=== PATIENT | female | born 1990 | race Caucasian/White ===

== ENCOUNTER 2024-07-05 10:43 | Emergency (ER) | payer SELFPAY ==
[~2024-07-05] VITALS: Ht 167.6 cm; Wt 73.0 kg
[2024-07-05 10:46] VITALS: O2SAT 98
[2024-07-05] MEDS: METHOCARBAMOL 500MG TABLET PO ONE (13:31)
[2024-07-05] MEDS: IBUPROFEN 600MG TABLET PO ONE (13:31)
[2024-07-05] MEDS ORDERED: IBUP-2029 MT (14:18)
[2024-07-05] MEDS ORDERED: METH-653 MT (14:18)
[2024-07-05 14:48] VITALS: BP 136/80; PULSE 76; RESP 20; TEMP 36.8; O2SAT 99
== END 2024-07-05 14:50 | disposition home or self-care (01) ==
LOC: ER 11:00
DX: S43.402A Unspecified sprain of left shoulder joint, initial encounter (principal); S83.92XA Sprain of unspecified site of left knee, initial encounter; M19.90 Unspecified osteoarthritis, unspecified site; Z88.0 Allergy status to penicillin; V89.2XXA Person injured in unspecified motor-vehicle accident, traffic, initial encounter; Y93.89 Activity, other specified; Y92.410 Unspecified street and highway as the place of occurrence of the external cause; Y99.8 Other external cause status
CPT/HCPCS: 71045; 73030; 73562; 70450; 99284; Z7610